=== PATIENT | female | born 1995 | race African-American/Black ===

== ENCOUNTER 2021-01-19 08:45 | Inpatient (IN) ==
[2021-01-19] MEDS ORDERED: MEPERIDINE 50 MG/1 ML VIAL IV PRN (11:31)
[2021-01-19] MEDS ORDERED: ONDANSETRON 4 MG/2 ML VIAL IV PRN (11:31)
[2021-01-19] MEDS ORDERED: BUTORPHANOL 2 MG/ML VIAL IV PRN (11:31)
[2021-01-19 11:58] LABS: Basophils # 0.1 10*3/uL (0.0-0.2); Basophils % 0.4 % (0.0-0.8); Eosinophils # 0.1 10*3/uL (0.0-0.87); Eosinophils % 0.5 % (0.00-10.9); Hematocrit 38.5 VOL% (35.7-47.0); Hemoglobin 12.7 GM/DL (12.0-16.0); Immature Granulocytes % 3.5 %; Immature Granulocytes Absolute 0.51 #; Lymphocytes % 13.6 % (21.3-54.2); Mean Corpuscular Volume 93.4 FL (87-102); Mean Platelet Volume 10.9 FL (9.6-12.0); Monocytes % 11.2 % (1.7-12.7); Neutrophils % 70.8 % (38.7-73.9); Platelet Count 207 T/CUMM (130-400); Red Blood Count 4.12 MC/CUMM (3.8-5.5); Red Cell Distribution Width 12.8 % (9.3-17.3); White Blood Count 14.7 T/CUMM (4-12)
[2021-01-19] MEDS ORDERED: LACTATED RINGERS 1,000 ML IV SCH ×3 (12:00→13:00)
[2021-01-19] MEDS ORDERED: OXYTOCIN/LR 20 UNIT/1,000 ML BAG IV SCH (12:00)
[2021-01-19 12:27] LABS: Albumin 3.1 G/DL (3.4-5.0); Bilirubin,Total 0.5 MG/DL (0.20-1.00); Calcium 9.1 MG/DL (8.5-10.1); Potassium 3.9 MMOL/L (3.5-5.1); Total Protein 6.7 G/DL (6.4-8.2)
[2021-01-19] MEDS ORDERED: ePHEDrine 50 MG/ML VIAL IV PRN (12:37)
[2021-01-19] MEDS ORDERED: ONDANSETRON 4 MG/2 ML VIAL IV ONE (12:37)
[2021-01-19] MEDS ORDERED: LACTATED RINGERS 1,000 ML IV ONE (12:37)
[2021-01-19] MEDS ORDERED: CITRIC ACID/SODIUM CITRATE 30 ML UDCUP PO ONE (12:42)
[2021-01-19] MEDS ORDERED: FAMOTIDINE 20 MG/2 ML VIAL IV ONE (12:42)
[2021-01-19] MEDS ORDERED: NALOXONE 0.4 MG/ML VIAL IV PRN (12:42)
[2021-01-19] MEDS ORDERED: fentaNYL 2 MCG/ROPIV 0.2% EPID 100 ML EPIDURAL SCH (13:00)
[2021-01-19 13:39] LABS: Atypical Lymphocytes Few; Eosinophils 2 % (0-10); Hypochromasia Slight; Lymphocytes 23 % (20-55); Segmented Neutrophils 66 % (50-85); Total Cells Counted 100
[2021-01-19 14:30] LABS: Bilirubin,Urine Negative (Negative); Blood, Urine Negative (Negative); Glucose,Urine (UA) Negative (Negative); Ketones,Urine Negative (Negative); Mucus,Urine Occasional /LPF (Occasional); Nitrite,Urine Negative (Negative); Protein,Urine Negative; RBC,Urine <1 /HPF (0-4); Urine Appearance CLEAR (Clear); Urine Color Yellow (Yellow); Urine Specific Gravity 1.014 (1.001-1.035); Urine Urobilinogen < 2.0 EU/DL (0.2-1.0)
[2021-01-19 14:40] LABS: Barbiturates Screen,Urine Negative (Negative); Benzodiazepines Screen,Urine Negative (Negative); Cannabinoid Screen,Urine Negative (Negative); Opiate Screen,Urine Negative (Negative); Phencyclidine Screen,Urine Negative (Negative)
[2021-01-19] MEDS ORDERED: CARBOPROST TROMETHAMINE 250 MCG/ML AMP IM ONE (16:15)
[2021-01-19] MEDS ORDERED: OXYTOCIN/LR 0 UNIT/0 ML BAG IV ONE (16:15)
[2021-01-19] MEDS ORDERED: TRANEXAMIC ACID 1,000 MG/10 ML VIAL ONE (16:15)
[2021-01-19] MEDS ORDERED: METHYLERGONOVINE 0.2 MG/1 ML AMP ONE (16:15)
[2021-01-19] MEDS ORDERED: miSOPROStoL 200 MCG TABLET ONE (16:15)
[2021-01-19] MEDS ORDERED: SODIUM CHLORIDE 0.9% 0 ML IV ONE (16:17)
[2021-01-19 16:54] LABS: Cord Venous Blood HCO3 22.9 MMOL/L; Cord Venous Blood PCO2 40.4 MMHG; Cord Venous Blood PO2 33.5 MMHG
[2021-01-19] MEDS ORDERED: DIPH/TET/ACEL PERT BOOSTER VACCINE 0.5 ML VIAL IM ONE (17:06)
[2021-01-19] MEDS ORDERED: OXYTOCIN/LR 20 UNIT/1,000 ML BAG IV ONE (17:06)
[2021-01-19] MEDS ORDERED: oxyCODONE/ACETAMINOPHEN 5-325 MG TABLET PO PRN (17:06)
[2021-01-19] MEDS ORDERED: IBUPROFEN 800 MG TABLET PO PRN (17:06)
[2021-01-19] MEDS ORDERED: BISACODYL 10 MG SUPP RECTAL PRN (17:06)
[2021-01-19] MEDS ORDERED: ACETAMINOPHEN 325 MG TABLET PO PRN (17:06)
[2021-01-19] MEDS ORDERED: HYDROCORTISONE 2.5% RECTAL CREAM 30 GM TUBE TOP PRN (17:06)
[2021-01-19] MEDS ORDERED: RHO(D) IMMUNE GLOBULIN 300 MCG SYRINGE IM ONE (17:06)
[2021-01-19] MEDS ORDERED: BENZOCAINE 20%/MENTHOL 0.5% SPRAY 56 GM CAN TOP PRN (17:06)
[2021-01-19] MEDS ORDERED: MEASLES/MUMPS/RUBELLA VACCINE 0.5 ML VIAL SUBCUT ONE (17:06)
[2021-01-19] MEDS ORDERED: LANOLIN 50% CREAM 0.3 OZ TUBE TOP PRN (17:06)
[2021-01-19] MEDS ORDERED: WITCH HAZEL PADS 100/JAR TOP PRN (17:06)
[2021-01-19] MEDS ORDERED: DOCUSATE/SENNA 50-8.6 MG TABLET PO PRN (17:06)
[2021-01-19] MEDS ORDERED: diphenhydrAMINE 50 MG/1 ML VIAL IV ONE (18:00)
[2021-01-19] MEDS: oxyCODONE/ACETAMINOPHEN 5-325 MG TABLET PO PRN (20:15)
[2021-01-19] MEDS: DOCUSATE SODIUM 100 MG CAPSULE PO SCH (20:15)
[2021-01-20] MEDS: oxyCODONE/ACETAMINOPHEN 5-325 MG TABLET PO PRN (02:00)
[2021-01-20] MEDS: IBUPROFEN 800 MG TABLET PO PRN ×3 (02:01→14:30)
[2021-01-20 05:56] LABS: Basophils # 0.1 10*3/uL (0.0-0.2); Basophils % 0.5 % (0.0-0.8); Eosinophils # 0.1 10*3/uL (0.0-0.87); Eosinophils % 0.8 % (0.00-10.9); Immature Granulocytes % 3.2 %; Immature Granulocytes Absolute 0.53 #; Lymphocytes # 2.5 10*3/uL (1.4-4.0); Lymphocytes % 15.1 % (21.3-54.2); Mean Corpuscular HGB Conc 33.3 GM/DL (32-36); Mean Corpuscular Volume 95.7 FL (87-102); Mean Platelet Volume 11.2 FL (9.6-12.0); Monocytes % 13.2 % (1.7-12.7); Neutrophils % 67.2 % (38.7-73.9); Platelet Count 165 T/CUMM (130-400); Red Blood Count 3.45 MC/CUMM (3.8-5.5); Red Cell Distribution Width 12.9 % (9.3-17.3); White Blood Count 16.8 T/CUMM (4-12)
[2021-01-20 06:24] LABS: Rubella Antibody IgG Result Reactive (NonReactive)
[2021-01-20 06:32] LABS: Eosinophils 1 % (0-10); Lymphocytes 18 % (20-55); Segmented Neutrophils 70 % (50-85); Total Cells Counted 100
[2021-01-20 06:33] LABS: Hypochromasia Slight; Microcytosis 1+
[2021-01-20 06:34] LABS: Platelet Estimate Adequate
[2021-01-20] MEDS: DOCUSATE SODIUM 100 MG CAPSULE PO SCH ×2 (08:39→22:06)
[2021-01-21] MEDS: IBUPROFEN 800 MG TABLET PO PRN ×2 (02:01→09:51)
[2021-01-21] MEDS: oxyCODONE/ACETAMINOPHEN 5-325 MG TABLET PO PRN (02:01)
[2021-01-21] MEDS: DOCUSATE SODIUM 100 MG CAPSULE PO SCH ×2 (07:42→09:58)
[2021-01-21 09:08] VITALS: BP 104/66
== END 2021-01-21 14:40 | disposition home or self-care (01) | DRG 560 ==
LOC: N.LD 08:45 → N.OB 21:32
PROVIDERS: ADMIT Obstetrics & Gynecology; ATTEND Obstetrics & Gynecology